=== PATIENT | male | born 1980 | race African-American/Black ===

== ENCOUNTER 2020-12-25 15:26 | Emergency (ER) | payer SELFPAY ==
[~2020-12-25] VITALS: Ht 185.4 cm; Wt 109.0 kg
[2020-12-25 16:03] VITALS: BP 164/93
[2020-12-25] MEDS ORDERED: ONDANSETRON PF 4 MG/2 ML VIAL. IVP ONE (16:30)
[2020-12-25] MEDS ORDERED: IV NORMAL SALINE 1,000ML 1,000 ML IV ONE (16:30)
--- NOTE | 2020-12-25 16:42 | PHYS DOC ---
Past History Past Surgical History: No Surgical History (ANTOINETTE LOPEZ APRN) General Adult EDM: Chief Complaint: ABDOMINAL PAIN HPI: HPI: Patient is a 40-year-old male being seen in the ER for nausea, vomiting, abdominal pain that started this morning. Patient reports that he has had dental pain and was taking Tylenol and ibuprofen throughout the night last night since 2029. He reports that he took so much of these medications he cannot estimate how much but he woke up this morning with nausea/vomiting and abdominal pain. He reports vomiting 6 times today. He states he tried to drink fluids but tolerate. Patient rates pain 7 out of 10, it is generalized and he describes it as a tightness. Patient denies fevers, dysuria, urinary frequency/urgency, hematuria, shortness of breath, chest pain, cough. (ANTOINETTE LOPEZ APRN) Review of Systems: Review of Systems: 14 body systems of the review of systems have been reviewed. See HPI for pertinent positive and negative responses, otherwise all other systems are negative, nonpertinent or noncontributory (ANTOINETTE LOPEZ APRN) Current Medications: Current Meds: Current Medications Medications (Trade) Dose Ordered Sig/Anayeli Start Time Stop Time Status Last Admin Dose Admin Ondansetron HCl (Zofran) 4 mg 1X ONCE 12/25/20 16:30 12/25/20 16:31 UNV Sodium Chloride 1,000 ml @ 1,000 mls/hr 1X ONCE 12/25/20 16:30 12/25/20 17:29 UNV (ANTOINETTE LOPEZ APRN) Allergies: Allergies: Allergies Coded Allergies Type Severity Reaction Last Updated Verified No Known Drug Allergies 12/25/20 No (ANTOINETTE LOPEZ APRN) Physical Exam: PE: Constitutional: Well developed, well nourished, no acute distress, non-toxic appearance. [] HENT: Normocephalic, atraumatic, bilateral external ears normal, oropharynx moist, no oral exudates, nose normal, no trismus, several areas of tooth decay and caries, no facial swelling, uvula midline. [] Eyes: PERRL, conjunctiva normal, no discharge. [] Neck: Normal range of motion, no tenderness, supple, no stridor. [] Cardiovascular:Heart rate regular rhythm, no murmur [] Lungs & Thorax: Bilateral breath sounds clear to auscultation [] Abdomen: Bowel sounds normal, soft, no masses, no pulsatile masses, tenderness with palpation to bilateral upper quadrants. [] Skin: Warm, dry, no erythema, no rash. [] Back: No tenderness, normal range of motion Extremities: No tenderness, no cyanosis, no clubbing, ROM intact, no edema. [] Neurologic: Alert and oriented X 3, normal motor function, normal sensory function, no focal deficits noted. [] Psychologic: Affect normal, judgement normal, mood normal. [] (ANTOINETTE LOPEZ APRN) Current Patient Data: Vital Signs: Vital Signs Date Time Temp Pulse Resp B/P (MAP) Pulse Ox O2 Delivery O2 Flow Rate FiO2 12/25/20 16:03 97.3 70 15 164/93 99 Room Air (ANTOINETTE LOPEZ APRN) EKG: EKG: [] (ANTOINETTE LOPEZ APRN) Radiology/Procedures: Radiology/Procedures: PROCEDURE: CT ABD PELV W/ IV CONTRST ONLY CT abdomen and pelvis with contrast PQRS statement: CT scans at this facility use dose reduction including either automated exposure control, iterative reconstructions, and /or weight based radiation dosing via mA and kV modification when appropriate to reduce radiation dose to as low as reasonably achievable. Contrast: 75 mL Omnipaque 300 intravenous contrast. HISTORY: Abdominal pain. Abdomen findings: Lung bases and bones are unremarkable. Couple of calcified granulomas within the liver present. Tiny subcentimeter hypodense foci inferior right hepatic lobe and at the right renal upper pole too small to characterize most likely small cysts. Left kidney, adrenals, pancreas, spleen and gallbladder are unremarkable. There is luminal collapse and mild wall thickening throughout the large bowel without surrounding edema or hypervascularity. Appendix is negative. No bowel obstruction. There is also some luminal collapse and questionable wall thickening of the mid to distal small bowel at the mid to lower abdomen and right lower quadrant. No abdominal fluid or adenopathy. Pelvis findings: Bladder, prostate, rectum and bones are unremarkable. No pelvic fluid. No adenopathy. IMPRESSION: 1. There is mild luminal collapse and wall thickening throughout the large bowel and the mid to distal small bowel without surrounding edema or hypervascularity, this could be pseudowall thickening from underdistention of the bowel, versus mild changes of enterocolitis. 2. Appendix is negative. Electronically signed by: Shazia Jordan MD (12/25/2020 5:10 PM) [facility] DICTATED AND SIGNED BY: SHAZIA JORDAN MD DATE: 12/25/201704 CC: ANTOINETTE LOPEZ APRN; PCPYISEL ~MTH0 0[] (ANTOINETTE LOPEZ APRN) Heart Score: C/O Chest Pain: No Risk Factors: Risk Factors: DM, Current or recent (<one month) smoker, HTN, HLP, family history of CAD, obesity. Risk Scores: Score 0 - 3: 2.5% MACE over next 6 weeks - Discharge Home Score 4 - 6: 20.3% MACE over next 6 weeks - Admit for Clinical Observation Score 7 - 10: 72.7% MACE over next 6 weeks - Early Invasive Strategies (ANTOINETTE LOPEZ APRN) Course & Med Decision Making: Course & Med Decision Making Pertinent Labs and Imaging studies reviewed. (See chart for details) Patient is a 40-year-old male being seen in the ER for nausea/vomiting and abdominal pain that occurred after taking several Tylenol and ibuprofen. Work- up in the ER consisted of blood work, UA, CT scan of abdomen. Patient was treated with a liter of normal saline and Zofran. Blood work unremarkable. Patient does not have toxic levels of Tylenol or salicylates. CT scan of abdomen showed enterocolitis this will be treated with an antibiotic. Patient refused Covid testing. I discussed with patient all findings and diagnostic testing as well as the need to follow-up with PCP for further evaluation and treatment or return to the ER if any new or worsening symptoms. Strict return precautions were also discussed at length. Patient voiced understanding and agreement with the plan. Patient is hemodynamically stable at the time of disposition. (ANTOINETTE LOPEZ APRN) Dragon Disclaimer: Dragon Disclaimer: This electronic medical record was generated, in whole or in part, using a voice recognition dictation system. (ANTOINETTE LOPEZ APRN) Attending Co-Sign The patient was seen and interviewed as well as examined at the bedside. The chart was reviewed. The case was discussed. Agree with the plan of care. (ESTHER REYES DO) Departure Departure: Impression: Primary Impression: Enterocolitis Disposition: HOME / SELF CARE / HOMELESS Condition: GOOD Referrals: PCP,NO (PCP) Patient Instructions: Abdominal Pain, Nausea and Vomiting Additional Instructions: You were seen in the ER today for nausea/vomiting and abdominal pain. Your blood work was unremarkable. CT scan of your abdomen showed enterocolitis which is inflammation of your intestines. This can be caused by a bacteria or virus. You refused Covid testing in the ER. If this is caused by a bacteria, you are t reated with an antibiotic. A prescription for azithromycin is sent in to the [facility] pharmacy. You're also being sent home with a prescription for Zofran for nausea. Take this as directed. Do not take any more Tylenol/ibuprofen. Increase fluids and stick to a clear liquid diet over the next 24 hours. Following 24 hours you can eat a bland diet such as bananas, rice, applesauce, t oast. Increase your diet as tolerated. If you develop severe abdominal pain, intractable nausea/vomiting, fevers, diarrhea, blood in your stools, shortness of breath, chest pain return to the ER immediately. EMERGENCY DEPARTMENT GENERAL DISCHARGE INSTRUCTIONS Thank you for coming to [facility] (ED) today and trusting us with you care. We trust that you had a positivie experience in our Emergency Department. If you wish to speak to the department management, you may call the director at [phone]. YOUR FOLLOW UP INSTRUCTIONS ARE FOLLOWS: 1. Do you have a private Doctor? If you do not have a private doctor, please ask for a resource list of physicians or clinics that may be able to assist you with follow up care. 2. The Emergency Physician has interpreted your x-rays. The X-Ray specialist will also review them. If there is a change in the findings, you will be notified in 48 hours when at all possible. 3. A lab test or culture has been done, your results will be reviewed and you will be notified if you need a change in treatment. ADDITIONAL INSTRUCTIONS AND INFORMATION: 1. Your care today has been supervised by a physician who is specially trained in emergency care. Many problems require more than one evaluation for a complete diagnosis and treatment. We recommend that you schedule your follow up appointment as recommended to ensure complete treatment of you illness or injury. If you are unable to obtain follow up care and continue to have a problem, or if your condition worsens, we recommend that you return to the ED. 2. We are not able to safely determine your condition over the phone nor are we able to give sound medical advice over the phone. For these safety reasons, if you call for medical advice we will ask you to come to the ED for further evaluation. 3. If you have any questions regarding these discharge instructions please call the ED at [phone]. SAFETY INFORMATION: In the interest of safety, wellness, and injury prevention; we encourage you to wear your sealbelt, if you smoke; quite smoking, and we encourage family to use a protective helmet for bicycling and other sporting events that present an increased risk for head injury. IF YOUR SYMPTOMS WORSEN OR NEW SYMPTOMS DEVELOP, OR YOU HAVE CONCERNS ABOUT YOUR CONDITION; OR IF YOUR CONDITION WORSENS WHILE YOU ARE WAITING FOR YOUR FOLLOW UP APPOINTMENT; EITHER CONTACT YOUR PRIMARY CARE DOCTOR, THE PHYSICIAN WHOSE NAME AND NUMBER YOU WERE GIVEN, OR RETURN TO THE ED IMMEDIATELY. Scripts Ondansetron Hcl (ZOFRAN) 4 Mg Tablet 4 MG PO TID PRN PRN for NAUSEA for 3 Days, #9 TAB 0 Refills Prov: ANTOINETTE LOPEZ APRN 12/25/20 Azithromycin (AZITHROMYCIN TABLET) 500 Mg Tablet 1 TAB PO DAILY for enterocolitis for 5 Days, #5 TAB 0 Refills Prov: ANTOINETTE LOPEZ APRN 12/25/20 ANTOINETTE LOPEZ APRN Dec 25, 2020 16:42 ESTHER REYES DO Dec 26, 2020 18:13
[2020-12-25] MEDS ORDERED: IOHEXOL 300 MG/ML 75 ML VIAL. IV ONE (16:45)
[2020-12-25 17:11] LABS: BASO # 0.1 x10^3/uL (0.0-0.2); BASO % 1 % (0-3); EOS % 0 % (0-3); HEMATOCRIT 42.8 % (39.0-53.0); HEMOGLOBIN 14.1 g/dL (13.0-17.5); LYMPH # 2.4 x10^3/uL (1.0-4.8); LYMPH % 25 % (24-48); MEAN CORPUSCULAR HEMOGLOBIN 29 pg (25-35); MEAN CORPUSCULAR HGB CONC 33 g/dL (31-37); MEAN CORPUSCULAR VOLUME 89 fL (79-100); MONO # 0.8 x10^3/uL (0.0-1.1); MONO % 8 % (0-9); NEUT # 6.3 x10^3uL (1.8-7.7); NEUT % 66 % (31-73); PLATELET COUNT 251 x10^3/uL (140-400); RED BLOOD COUNT 4.84 x10^6/uL (4.30-5.70); RED CELL DISTRIBUTION WIDTH 12.4 % (11.5-14.5); WHITE BLOOD COUNT 9.5 x10^3/uL (4.0-11.0)
--- NOTE | 2020-12-25 17:12 | RAD ---
CT abdomen and pelvis with contrast PQRS statement: CT scans at this facility use dose reduction including either automated exposure cont rol, iterative reconstructions, and /or weight based radiation dosing via mA and kV modification when appropriate to reduce radiation dose to as low as reasonably achievable. Contrast: 75 mL Omnipaque 300 intravenous contrast. HISTORY: Abdominal pain. Abdomen findings: Lung bases and bones are unremarkable. Couple of calcified granulomas within the li ross present. Tiny subcentimeter hypodense foci inferior right hepatic lobe and at the right renal upp er pole too small to characterize most likely small cysts. Left kidney, adrenals, pancreas, spleen an d gallbladder are unremarkable. There is luminal collapse and mild wall thickening throughout the lar ge bowel without surrounding edema or hypervascularity. Appendix is negative. No bowel obstruction. T here is also some luminal collapse and questionable wall thickening of the mid to distal small bowel at the mid to lower abdomen and right lower quadrant. No abdominal fluid or adenopathy. Pelvis findings: Bladder, prostate, rectum and bones are unremarkable. No pelvic fluid. No adenopathy . IMPRESSION: 1. There is mild luminal collapse and wall thickening throughout the large bowel and the mid to dista l small bowel without surrounding edema or hypervascularity, this could be pseudowall thickening from underdistention of the bowel, versus mild changes of enterocolitis. 2. Appendix is negative. Electronically signed by: Marcelo Soto MD (12/25/2020 5:10 PM) [facility]
[2020-12-25 17:25] LABS: CALCIUM 9.3 mg/dL (8.5-10.1); CREATININE 1.1 mg/dL (0.7-1.3); GFR 88.8; POTASSIUM 4.2 mmol/L (3.5-5.1)
[2020-12-25 17:29] LABS: ACETAMIN < 2.0 mcg/mL (10-30); SALIC 4.3 mg/dL (2.8-20.0)
[2020-12-25 17:30] LABS: ALBUMIN 4.3 g/dL (3.4-5.0); ALBUMIN/GLOBULIN RATIO 1.1 (1.0-1.7); TOTAL BILIRUBIN 0.7 mg/dL (0.2-1.0); TOTAL PROTEIN 8.3 g/dL (6.4-8.2)
[2020-12-25] MEDS ORDERED: ONDA4TAB7 PO (17:48)
[2020-12-25] MEDS ORDERED: AZIT500T4 PO (17:48)
== END 2020-12-25 18:16 | disposition home or self-care (01) ==
LOC: ER 15:40
DX: K52.9 Noninfective gastroenteritis and colitis, unspecified (principal); K08.89 Other specified disorders of teeth and supporting structures
CPT/HCPCS: 36415; 74177; 80053; 80329; 83690; 85025; 96361; 96374; 99285; J2405; J7030; Q9967; G0480